=== PATIENT | male | born 1955 | race African-American/Black ===

== ENCOUNTER 2023-07-07 00:36 | Emergency (ER) | payer MEDICARE, OTHER ==
[~2023-07-07] VITALS: Ht 182.9 cm; Wt 108.9 kg
[2023-07-07] MEDS ORDERED: HYDROCODONE/APAP 5/325MG TABLET PO ONE (01:00)
[2023-07-07] MEDS ORDERED: HYDR-4209 PO (01:01)
[2023-07-07] MEDS ORDERED: HYDROCODONE/APAP 5/325MG TABLET ONE (01:02)
[2023-07-07 01:21] VITALS: BP 128/78; TEMP 98.4; O2SAT 99
== END 2023-07-07 01:22 | disposition home or self-care (01) ==
LOC: ER 00:44
DX: K42.9 Umbilical hernia without obstruction or gangrene (principal); I10 Essential (primary) hypertension; Z59.00 Homelessness unspecified